=== PATIENT | male | born 1950 | race Caucasian/White ===

== ENCOUNTER 2016-11-11 03:32 | Emergency (ER) | payer MEDICARE ==
[~2016-11-11 03:32] MED LIST: FLEXERIL10 M1 PO; MEDROL4 MG/DOSE- PO; MELOXICAM15 MG PO
== END 2016-11-11 19:21 | disposition home or self-care (01) ==
LOC: CED 03:32
DX: S80.812A Abrasion, left lower leg, initial encounter (principal); W54.0XXA Bitten by dog, initial encounter; Y92.89 Other specified places as the place of occurrence of the external cause
CPT/HCPCS: 99283